=== PATIENT | female | born 1965 | race Hispanic/Latino ===

== ENCOUNTER → 2025-04-21 | Outpatient (CLI) | payer OTHER | END | disposition home or self-care (01) | LOC: RAH 10:50 | PROVIDERS: ATTEND Internal Medicine | DX: Z12.31 Encounter for screening mammogram for malignant neoplasm of breast (principal) | CPT/HCPCS: 77067 ==

== ENCOUNTER 2025-05-13 06:25 | Day surgery (SDC) | payer OTHER ==
[~2025-05-13] VITALS: Ht 149.9 cm; Wt 63.5 kg
[2025-05-13] VITALS (10 sets, daily range): BP systolic 97–131; BP diastolic 62–76; PULSE 62–74; RESP 15–20; TEMP 97.5–98.1
[2025-05-13] MEDS: 0.9%NACL 1000ML 1,000 ML IV ONE (06:57)
[2025-05-13] MEDS ORDERED: METF-444 PO (07:02)
[2025-05-13] MEDS ORDERED: AMOX1TAB16 PO (07:02)
[2025-05-13] MEDS ORDERED: GABA-529 PO (07:02)
[2025-05-13] MEDS ORDERED: ROSU20TA98 PO (07:02)
[2025-05-13] MEDS ORDERED: METR-172 PO (07:02)
[2025-05-13] MEDS ORDERED: LISI5TAB21 PO (07:02)
--- NOTE | 2025-05-13 09:55 | NUR ---
PT STATES SEVERE ABD PAIN, I STOOD UP PT TO HAVE HER WALK AROUND TO TRY AND PASS GAS. GI LAB WAS CALLED V/O FOR SIMETHICONE. PT THEN WENT TO THE RESTROOM AND PASSED SIGNIFICANT AMOUNT OF GAS. PT DID STATE SHE DID FEEL BETTER AFTER PASSING GAS. PT CONTINUES TO HAVE PAIN. I DID TELL HER SHE WILL STAY A LITTLE LONGER WITH ME UNTIL SHE FEELS BETTER
[2025-05-13] MEDS ORDERED: SIMETHICONE 40 MG/0.6 ML ML ONE (09:56)
--- NOTE | 2025-05-13 10:20 | NUR ---
PT STATES PAIN SIGNIFICANTLY IMPROVED AFTER PASSING GAS
--- NOTE | 2025-05-13 10:24 | NUR ---
BOTH PT AND SON GIVEN VERBAL AND WRITTEN DISCHARGE INSTRUCTIONS IV REMOVED SITE ASYMPTOMATIC. PT TAKEN OUT VIA WHEELCHAIR SON DRIVING.
== END 2025-05-13 10:27 | disposition home or self-care (01) ==
LOC: DAH 06:25 → ENDO 06:25
PROVIDERS: ATTEND Internal Medicine
DX: Z12.11 Encounter for screening for malignant neoplasm of colon (principal); K63.5 Polyp of colon; K62.1 Rectal polyp; I10 Essential (primary) hypertension; E11.9 Type 2 diabetes mellitus without complications; R12 Heartburn; E78.5 Hyperlipidemia, unspecified; Z88.7 Allergy status to serum and vaccine; Z90.49 Acquired absence of other specified parts of digestive tract; Z98.890 Other specified postprocedural states; Z79.899 Other long term (current) drug therapy
CPT/HCPCS: 45380; 84703; 82948 ×2; 36415; J7030; J2704; A4620; A4215; J3490

== ENCOUNTER → 2025-08-06 | Outpatient (CLI) | payer OTHER ==
[~2025-08-06] MED LIST: AMOX1TAB16 PO; GABA-529 PO; LISI5TAB21 PO; METF-444 PO; METR-172 PO; ROSU20TA98 PO
[2025-08-06 12:30] LABS: IMMATURE GRANULOCYTE ABSOLUTE 0.02 K/uL (0-1); NUCLEATED RED BLOOD CELLS 0.0 % (0.0-0.19); PLATELET COUNT (AUTO) 229 K/uL (130-400); RED BLOOD CELL COUNT(AUTO) 4.19 MIL/uL (4.00-5.50); RED CELL DISTRIBUTION WIDTH 12.8 % (11.0-15.5); WHITE BLOOD COUNT (AUTO) 5.5 K/uL (4.8-10.8)
[2025-08-06 12:53] LABS: ASPARTATE AMINOTRANSFERASE 19.0 U/L (10-37); CREATININE 0.7 mg/dL (0.5-1.0); GLOMERULAR FILTR. RATE CALC 100.0 mL/min (>90); GLUCOSE,RANDOM 135.0 mg/dL (70-105); LDL DIRECT 136.0 mg/dL (0-99); SODIUM SERUM 139.0 mmol/L (136-145); TOTAL PROTEIN, SERUM 8.0 g/dL (6.0-8.3); UREA NITROGEN, BLOOD 14.0 mg/dL (7-18)
== END | disposition home or self-care (01) ==
LOC: LAB 11:19
PROVIDERS: ATTEND Internal Medicine
DX: M54.12 Radiculopathy, cervical region (principal)
CPT/HCPCS: 36415; 80053; 80061; 84443; 85025

== ENCOUNTER → 2025-08-27 | Outpatient (CLI) | payer OTHER ==
--- NOTE | 2025-08-27 13:48 | HMCIMG ---
EXAM: CR SACRUM AND COCCYX, 3 VIEWS CLINICAL HISTORY: Radiculopathy cervical region sacrococcygeal disorders, not elsewhere classified COMPARISON: None provided TECHNIQUE: Frontal and lateral radiographs of the sacro-coccygeal spine. Three projections. FINDINGS: Sacrum/Coccyx: No displaced fracture.The distal coccygeal piece shows a relatively thinned out anterior cortex, with rarefaction. Note that overlapping bowel shadows may however obscure fine detail in the frontal view. Sacro-iliac joints: Mild bilateral sacroiliitis is noted in the form of mild periarticular sclerosis. Soft tissues: Unremarkable. IMPRESSION: 1. No displaced fracture in the sacrum or coccyx. 2. The distal coccygeal piece shows a relatively significantly thinned out anterior cortex with rarefaction.For correlation with physical examination and point of maximum tenderness. 3. Mild bilateral sacroiliitis. /[place]
--- NOTE | 2025-08-28 05:34 | HMCIMG ---
EXAM: MR Cervical Spine Without Intravenous Contrast. CLINICAL HISTORY: Cervical radiculopathy. TECHNIQUE: Magnetic resonance images of the cervical spine in multiple planes. CONTRAST: None. COMPARISON: MRI dated 04/10/25. FINDINGS: The imaged posterior fossa is unremarkable. The craniocervical junction is intact. No acute fracture. Normal lordotic curvature. Normal vertebral body heights. Multilevel disc desiccation in the cervical spine. Moderate reduction in the disc height at the C4-5 level. Mild reduction in the disc height at the C5-6 level. Normal marrow signal of the vertebrae. No extra-axial masses. Thyroid gland is mildly bulky. Recommend ultrasound correlation. Level by level, disease is present as follows: C1-C2: Mild osteoarthritis. C2-C3: No disc bulge or herniation. No neural foraminal, lateral recess, or spinal canal stenosis. C3-C4: 3 mm diffuse posterior disc bulge. Mild canal stenosis. No neural foraminal or lateral recess stenosis. C4-C5: 6 mm circumferential disc bulge with greater posterocentral component. Bilateral prominent uncovertebral osteophytes. Moderate to severe canal stenosis with compression of the cervical cord and mild edema within. Moderate bilateral lateral recess narrowing. Severe bilateral neural foraminal narrowing. C5-C6: 4 mm circumferential disc bulge with greater posterocentral component and ligamentum flavum thickening. Bilateral prominent uncovertebral osteophytes. Moderate to severe canal stenosis with compression of the cord. Moderate bilateral lateral recess narrowing. Severe bilateral neural foraminal narrowing. C6-C7: 1 mm posterocentral disc bulge. No neural foraminal, lateral recess, or spinal canal stenosis. C7-T1: No disc bulge or herniation. No neural foraminal, lateral recess, or spinal canal stenosis. IMPRESSION: Multilevel degenerative disc disease in the cervical spine, most pronounced at the C4-5 level. Moderate to severe canal stenosis with compression of the cervical cord, moderate bilateral lateral recess narrowing and severe bilateral foraminal narrowing at C4-C5 and C5-C6 levels. Mild cord edema at the C4-C5 level, suggestive of compressive myelopathy. Comparison to prior MRI dated 04/10/25, there is mild further interval worsening of the canal narrowing and cord compression at the C4-C5 and C5-C6 levels. /[place]
== END | disposition home or self-care (01) ==
LOC: RAH 09:17
PROVIDERS: ATTEND Internal Medicine
DX: M47.22 Other spondylosis with radiculopathy, cervical region (principal); M53.3 Sacrococcygeal disorders, not elsewhere classified; M50.121 Cervical disc disorder at C4-C5 level with radiculopathy; M46.1 Sacroiliitis, not elsewhere classified; M48.02 Spinal stenosis, cervical region; M50.122 Cervical disc disorder at C5-C6 level with radiculopathy; M50.123 Cervical disc disorder at C6-C7 level with radiculopathy; M25.78 Osteophyte, vertebrae
CPT/HCPCS: 72141; 72220